=== PATIENT | female | born 2005 | race Caucasian/White ===

== ENCOUNTER 2024-11-27 08:28 | Emergency (ER) | payer BC, SELFPAY ==
[2024-11-27 08:33] VITALS: BP 109/73
--- NOTE | 2024-11-27 09:03 | ED.GENMED ---
History of Present Illness
General
Chief Complaint: Swelling
Source: patient and family
Exam Limitations: none
Time Seen by Provider: 11/27/24 08:44
History of Present Illness
History of Present Illness:
19yoF with no significant past medical history presenting with her mother for evaluation of a right posterior neck lump that has been present for the past several weeks. It started as the size of a zit and has been gradually getting larger. The
area is mildly painful. She has a history of prior neck masses that have been surgically removed but the biopsy results have always been inconclusive and she has never received a formal diagnosis. She is otherwise asymptomatic and denies any
fevers, sore throat, URI symptoms, recent illness, weight loss.
Phy Exam
General Physical Exam
General Presentation: well appearing and no apparent distress
General age: appears stated age
General Skin: warm and dry
General Habitus: normal
General Mental: alert
ENT Exam
ENT Exam: TM's normal, neck supple, normocephalic and other (Small 1cm mobile ovoid mass in the R posterior cervical chain consistent with a lymph node. No overlying erythema or warmth. Mildly tender to touch. )
Pulmonary Exam
Pulmonary Exam: no respiratory distress
Neurological Exam
Neurological Exam: alert
Khang Coma Scale
Eye Opening: Spontaneous
Verbal Response: Oriented
Motor Response: Obeys Commands
GCS Total Score: 15
Skin Exam
Skin Exam: normal color and warm/dry
Psychiatric Exam
Psychiatric Exam: normal mood/affect
Course
Orders/Labs/Results
Orders:
Orders
11/27/24 09:02
US Thyroid/Neck/Head Urgent
Comment:
Reason For Exam: R posterior neck lump
Vital Signs
Initial and Last Documented VS:
Initial Vital Signs
Temp Pulse Resp BP Pulse Ox
98.2 F 81 16 109/73 96
11/27/24 08:33 11/27/24 08:33 11/27/24 08:33 11/27/24 08:33 11/27/24 08:33
Last Documented Vital Signs
Temp Pulse Resp BP Pulse Ox
98.2 F 81 16 109/73 96
11/27/24 08:33 11/27/24 08:33 11/27/24 08:33 11/27/24 08:33 11/27/24 08:33
MDM/Problems Addressed
Differential Diagnosis Includes:
19yoF here with a lump on her neck x several weeks that is getting larger. Otherwise asymptomatic. VSS. There is a small 1cm mobile mass on the R posterior neck consistent with a lymph node. Other ddx: lipoma, cyst, malignancy
Ultrasound obtained and findings suggestive of a lymph node. No indication for further workup. Advised f/u with ENT for further care. Family friend also would like patient to f/u with ID and contact information provided. She was discharged in stable
condition.
*Critical Care Note
Total Time (30-74mins, 75-104mins- exclusive of procedures): Not Applicable
ED Attending Note
-
Portions of this chart may have been created with voice recognition software.� Occasional wrong word or��sound alike� substitutions may have occurred due to the inherent limitations of voice recognition software.
Discharge Plan
Departure
Patient Disposition: Home (Routine Discharge)
Date of Disposition: 11/27/24
Time of Disposition: 10:34
Patient with high blood pressure during this ER visit?: No
Discharge Problem:
Posterior cervical lymphadenopathy
Instructions: Swollen lymph nodes in adults
Prescriptions:
No Action
acetaminophen-codeine 12 MG/5 ML solution
5 ml PO Q4HPRN PRN (Reason: pain) Qty: 120 0RF
Rx Instructions:
120 mg and 12 mg/5 ml
Referrals:
Judith Woodward PA-C [Family Provider] -
González Oakely MD [Active] -
Les Ahmadi MD [Active] -
Dee Dee Rodriguez MD [Active] -
Activity Restrictions/Additional Instructions:
Please follow-up with ENT for further care.
Interventions
Interventions:
*Risk Screen - Suicide Last Done: 11/27/24 08:33
*General Assessment Last Done: 11/27/24 10:25
*Neglect/Abuse Screening Last Done: 11/27/24 08:33
*ED- Fall Risk Assessment Last Done: 11/27/24 10:25
*ED COVID-19 Vaccine History Last Done: 11/27/24 10:25
*Nursing Disposition Last Done: 11/27/24 10:25
ED- Cardiac Assessment Last Done: 11/27/24 10:25
ED- Pulmonary Assessment Last Done: 11/27/24 10:25
ED-Skin Assessment Last Done: 11/27/24 10:20
Discharge Date and Time
Discharge Date/Time: 11/27/24 10:35
Print Language: NIGERIEN
== END 2024-11-27 10:35 | disposition home or self-care (01) ==
LOC: EMR 08:28
PROVIDERS: EMERGENCY PHYSICIAN Emergency Medicine; FAMILY PHYSICIAN Physician Assistant Medical
DX: R59.0 Localized enlarged lymph nodes (principal)
CPT/HCPCS: 99284; 76536